=== PATIENT | female | born 1940 | race Caucasian/White ===

== ENCOUNTER → 2018-06-29 | Outpatient (CLI) | payer OTHER ==
[~2018-06-29] MED LIST: ? BP MED; ACET325 PO; ACET500 PO; ALBU3IS INH; ALBU90OI61 INH; ALUMAG30SU PO; AMIT25 PO; AMIT50 PO; AMOX500 PO; ASPI325 PO; ASPI325EC PO; ASPI81EC PO; Aranesp60 MCG/0.3 INJ; Aspirin EC81 MG PO; BIOTENE DRY MO237 ML MM; BISA10S PR; Bactrim Ds Tab1 EACH PO; CALCAVITD PO; CEPH500 PO; CLOP75 PO; CODACE30 PO; CODGUAEL PO; CRANBERRY PO; DARB200I SUBQ; DOCU100 PO; FAMO20 PO; FERR325 PO; FERRIC CITRATE210 MG PO; FLUO10 PO; FLUO20; FLUO20 PO; FLUSAL2505 IH; FOLI1 PO; FOLI400 PO; FURO20 PO; FURO40 PO; GAVISON; HYDACE5 PO; HYDACE5325 PO; ICAPS; IPRAOI INH; Keflex500 MG PO; LACT10SY PO; LOPE2C PO; LORA1 PO; METO25 PO; METO25ER PO; METO50 PO; MOM PO; MULVITMIND PO; MULVITMINF PO; Micro-K10 MEQ PO; NAPR220 PO; NAPR550 PO; OMEPRAZOLE MAGN20 MG PO; ONDA4ODT MM; ONDA8 PO; ONDA8ODT MM; OXYACE5T PO; OXYC10ER PO; OXYC5 PO; OXYM.05NI; PANT20 PO; PHENA100 PO; POLY17UD PO; POTCHL10ER PO; POTCHL20ER PO; PROMETH-CODEIN 65 ML PO; RISP.25 PO; RXHYD5325 PO; RXHYDACE PO; SENN187 PO; SIME40L PO; SIMV10 PO; SIMV40 PO; SULTRIDS PO; TOCO1000 PO; TRAM50 PO; TRIHYD253A PO; TRIHYD253B PO; TRIHYD5075 PO; VAGIFEM10 MCG VG; Vitamin C100 M1 PO; [UNRECOGNIZED DRUG - REMARK]
[2018-06-29 13:32] LABS: Source, Urine Clean Catch
[2018-06-29 14:08] LABS: Appearance, Urine Cloudy (Clear); Bilirubin, Urine Neg (Neg); Blood, Urine 5+ (Neg); Color, Urine Yellow (P-Yellow); Glucose Qualitative, Urine Neg (Neg); Ketones, Urine Neg (Neg); Leukocyte Esterase, Urine 3+ (Neg); Nitrite, Urine Neg (Neg); Protein, Urine 3+ (Neg); Specific Gravity, Urine 1.015 (1.003-1.022); Urobilinogen, Urine NORM (Normal)
[2018-06-29 14:26] LABS: Bacteria Many /hpf; Red Blood Cells, Urine TNTC /hpf (0-2); Squamous Epithelial Cells Few /hpf (Few); White Blood Cells, Urine TNTC /hpf (0-5)
== END ==
LOC: LAB RH 09:21 → EDSTATUS 11:34
PROVIDERS: Registered Nurse
DX: A04.72 Enterocolitis due to Clostridium difficile, not specified as recurrent (principal); N39.0 Urinary tract infection, site not specified
CPT/HCPCS: 81001; 87086; 87493

== ENCOUNTER → 2019-01-05 | Outpatient (CLI) | payer OTHER ==
[2019-01-05 08:01] LABS: Source, Urine Catheter
[2019-01-05 09:17] LABS: Bilirubin, Urine Neg (Neg); Blood, Urine 3+ (Neg); Glucose Qualitative, Urine Neg (Neg); Ketones, Urine Neg (Neg); Leukocyte Esterase, Urine 3+ (Neg); Nitrite, Urine Neg (Neg); Protein, Urine 2+ (Neg); Urobilinogen, Urine NORM (Normal)
[2019-01-05 09:37] LABS: Appearance, Urine Cloudy (Clear); Color, Urine Yellow (P-Yellow)
[2019-01-05 09:38] LABS: White Blood Cells, Urine TNTC /hpf (0-5)
[2019-01-05 09:39] LABS: Bacteria Many /hpf; Red Blood Cells, Urine 25-50 /hpf (0-2); Squamous Epithelial Cells Few /hpf (Few)
== END ==
LOC: LAB RH 07:59 → EDSTATUS 11:28
PROVIDERS: Registered Nurse
DX: R30.0 Dysuria (principal)
CPT/HCPCS: 81001; 87077; 87086; 87186

== ENCOUNTER → 2019-09-05 | Outpatient (CLI) | payer OTHER ==
[~2019-09-05] MED LIST changes: +ASCO500 PO; +AZO CRANBERRY1 EAC1 PO; +Ativan1 MG; +CALC.25; +CEFU250T47 PO; +FERSU300; +FOLI1; +Generlac10 GM/15 M; +MIRALAX17 GM; +POTA10T PO; +PRED20 PO; +Prednisone10 MG PO; +Prozac20 MG PO; +Seroquel Xr50 MG PO; +ZOCOR20 MG PO
[2019-09-05 12:44] LABS: Bilirubin, Urine Neg (Neg); Blood, Urine 4+ (Neg); Glucose Qualitative, Urine Neg (Neg); Ketones, Urine Neg (Neg); Leukocyte Esterase, Urine 3+ (Neg); Nitrite, Urine Neg (Neg); Protein, Urine 3+ (Neg); Urobilinogen, Urine NORM (Normal)
[2019-09-05 13:03] LABS: Appearance, Urine Hazy (Clear); Bacteria Few /hpf; Color, Urine Yellow (P-Yellow); Red Blood Cells, Urine TNTC /hpf (0-2); Squamous Epithelial Cells Rare /hpf (Few); White Blood Cells, Urine TNTC /hpf (0-5)
== END | disposition home or self-care (01) ==
LOC: EDSTATUS 11:52 → LAB RH 12:16
PROVIDERS: Internal Medicine Nephrology
DX: N39.0 Urinary tract infection, site not specified (principal)
CPT/HCPCS: 81001; 87086

== ENCOUNTER 2019-10-10 19:20 | Emergency (ER) | payer OTHER ==
[~2019-10-10] VITALS: Ht 165.1 cm; Wt 90.7 kg
[~2019-10-10 19:20] MED LIST changes: -ASCO500 PO; -AZO CRANBERRY1 EAC1 PO; -Ativan1 MG; -CALC.25; -CEFU250T47 PO; -FERSU300; -FOLI1; -Generlac10 GM/15 M; -MIRALAX17 GM; -POTA10T PO; -PRED20 PO; -Prednisone10 MG PO; -Prozac20 MG PO; -Seroquel Xr50 MG PO; -ZOCOR20 MG PO
[2019-10-10] MEDS ORDERED: CEPH500 PO (20:31)
== END 2019-10-10 21:08 | disposition home or self-care (01) ==
LOC: ER 19:20
DX: N39.0 Urinary tract infection, site not specified (principal); I10 Essential (primary) hypertension; I25.10 Atherosclerotic heart disease of native coronary artery without angina pectoris; J44.9 Chronic obstructive pulmonary disease, unspecified; D64.9 Anemia, unspecified; Z79.899 Other long term (current) drug therapy; Z79.82 Long term (current) use of aspirin; Z79.01 Long term (current) use of anticoagulants; Z79.51 Long term (current) use of inhaled steroids; Z87.891 Personal history of nicotine dependence
CPT/HCPCS: 99283; A9270-GY

== ENCOUNTER → 2019-10-11 | Outpatient (CLI) | payer OTHER ==
[2019-10-10 19:48] LABS: Source, Urine Catheter
[2019-10-10 19:52] LABS: Bilirubin, Urine Neg (Neg); Blood, Urine 4+ (Neg); Glucose Qualitative, Urine Neg (Neg); Ketones, Urine Neg (Neg); Leukocyte Esterase, Urine 3+ (Neg); Nitrite, Urine Neg (Neg); Protein, Urine 2+ (Neg); Urobilinogen, Urine NORM (Normal)
[2019-10-10 20:05] LABS: Appearance, Urine Cloudy (Clear); Color, Urine Pale Yellow (P-Yellow)
[2019-10-10 20:07] LABS: Bacteria Many /hpf; Squamous Epithelial Cells Few /hpf (Few); White Blood Cells, Urine TNTC /hpf (0-5)
[~2019-10-11] MED LIST changes: +ASCO500 PO; +AZO CRANBERRY1 EAC1 PO; +Ativan1 MG; +CALC.25; +CEFU250T47 PO; +FERSU300; +FOLI1; +Generlac10 GM/15 M; +MIRALAX17 GM; +NARCAN4 MG; +POTA10T PO; +PRED20 PO; +Prednisone10 MG PO; +Prozac20 MG PO; +Seroquel Xr50 MG PO; +ZOCOR20 MG PO
== END | disposition home or self-care (01) ==
LOC: EDSTATUS 10-10 13:24 → LAB RH 10-10 13:25
DX: N39.0 Urinary tract infection, site not specified (principal)
CPT/HCPCS: 81001; 87077; 87086; 87186

== ENCOUNTER 2019-10-15 16:32 | Emergency (ER) | payer OTHER ==
[~2019-10-15] VITALS: Ht 167.6 cm; Wt 68.0 kg
[~2019-10-15 16:32] MED LIST changes: -ASCO500 PO; -AZO CRANBERRY1 EAC1 PO; -Ativan1 MG; -CALC.25; -CEFU250T47 PO; -FERSU300; -FOLI1; -Generlac10 GM/15 M; -MIRALAX17 GM; -NARCAN4 MG; -POTA10T PO; -PRED20 PO; -Prednisone10 MG PO; -Prozac20 MG PO; -Seroquel Xr50 MG PO; -ZOCOR20 MG PO
[2019-10-15] MEDS ORDERED: AMIT25 PO (16:54)
[2019-10-15] MEDS ORDERED: CALC.25 (16:55)
[2019-10-15] MEDS ORDERED: ASCO500 PO (16:55)
[2019-10-15] MEDS ORDERED: CLOP75 PO (16:56)
[2019-10-15] MEDS ORDERED: Prozac20 MG PO (16:56)
[2019-10-15] MEDS ORDERED: AZO CRANBERRY1 EAC1 PO (16:56)
[2019-10-15] MEDS ORDERED: FERSU300 (16:56)
[2019-10-15] MEDS ORDERED: FOLI1 (16:57)
[2019-10-15] MEDS ORDERED: METO25 PO (16:57)
[2019-10-15] MEDS ORDERED: FURO40 PO (16:57)
[2019-10-15] MEDS ORDERED: POTA10T PO (16:57)
[2019-10-15] MEDS ORDERED: MIRALAX17 GM (16:57)
[2019-10-15] MEDS ORDERED: Prednisone10 MG PO (16:58)
[2019-10-15] MEDS ORDERED: ZOCOR20 MG PO (16:58)
[2019-10-15] MEDS ORDERED: PANT20 PO (16:58)
[2019-10-15] MEDS ORDERED: CEFU250T47 PO (16:59)
[2019-10-15] MEDS ORDERED: Seroquel Xr50 MG PO (16:59)
[2019-10-15] MEDS ORDERED: Ativan1 MG (16:59)
[2019-10-15] MEDS ORDERED: CEPH500 PO (16:59)
[2019-10-15] MEDS ORDERED: Generlac10 GM/15 M (17:00)
[2019-10-15] MEDS ORDERED: PRED20 PO (17:01)
== END 2019-10-15 17:22 | disposition home or self-care (01) ==
LOC: ER 16:32
DX: Z04.3 Encounter for examination and observation following other accident (principal); I10 Essential (primary) hypertension; J44.9 Chronic obstructive pulmonary disease, unspecified; I25.10 Atherosclerotic heart disease of native coronary artery without angina pectoris; D64.9 Anemia, unspecified; N19 Unspecified kidney failure; Z79.899 Other long term (current) drug therapy; W19.XXXA Unspecified fall, initial encounter
CPT/HCPCS: 99283

== ENCOUNTER → 2019-10-23 | Outpatient (CLI) | payer OTHER ==
[~2019-10-23] MED LIST changes: +ASCO500 PO; +AZO CRANBERRY1 EAC1 PO; +Ativan1 MG; +CALC.25; +CEFU250T47 PO; +FERSU300; +FOLI1; +Generlac10 GM/15 M; +MIRALAX17 GM; +POTA10T PO; +PRED20 PO; +Prednisone10 MG PO; +Prozac20 MG PO; +Seroquel Xr50 MG PO; +ZOCOR20 MG PO
[2019-10-23 14:23] LABS: Bilirubin, Urine Neg (Neg); Blood, Urine 3+ (Neg); Glucose Qualitative, Urine Neg (Neg); Ketones, Urine Neg (Neg); Leukocyte Esterase, Urine 3+ (Neg); Nitrite, Urine Neg (Neg); Protein, Urine 2+ (Neg); Urobilinogen, Urine NORM (Normal); pH, Urine 6.5 (5.0-8.0)
[2019-10-23 14:28] LABS: Appearance, Urine Cloudy (Clear); Color, Urine Yellow (P-Yellow)
[2019-10-23 14:29] LABS: Bacteria Many /hpf; Mucus Light (0-Heavy); Squamous Epithelial Cells Rare /hpf (Few); White Blood Cells, Urine TNTC /hpf (0-5)
== END | disposition home or self-care (01) ==
LOC: LAB SHORT 13:30 → LAB 13:30
PROVIDERS: Internal Medicine Nephrology
DX: N18.4 Chronic kidney disease, stage 4 (severe) (principal); D75.1 Secondary polycythemia; N25.81 Secondary hyperparathyroidism of renal origin; E55.9 Vitamin D deficiency, unspecified; E78.00 Pure hypercholesterolemia, unspecified; D52.8 Other folate deficiency anemias; D50.9 Iron deficiency anemia, unspecified; R76.9 Abnormal immunological finding in serum, unspecified; R94.5 Abnormal results of liver function studies; R94.6 Abnormal results of thyroid function studies
CPT/HCPCS: 81001; 87077; 87086; 87186

== ENCOUNTER → 2019-11-10 | Outpatient (CLI) | payer OTHER ==
[2019-11-10 20:33] LABS: Appearance, Urine Cloudy (Clear); Bilirubin, Urine Neg (Neg); Blood, Urine 3+ (Neg); Color, Urine Yellow (P-Yellow); Glucose Qualitative, Urine Neg (Neg); Ketones, Urine Neg (Neg); Leukocyte Esterase, Urine 3+ (Neg); Nitrite, Urine Pos (Neg); Protein, Urine 2+ (Neg); Urobilinogen, Urine NORM (Normal)
[2019-11-10 20:40] LABS: Bacteria Many /hpf; Squamous Epithelial Cells Few /hpf (Few); White Blood Cells, Urine TNTC /hpf (0-5)
== END | disposition home or self-care (01) ==
LOC: EDSTATUS 13:09 → LAB RH 20:24
DX: N39.0 Urinary tract infection, site not specified (principal)
CPT/HCPCS: 81001; 87077; 87086; 87186

== ENCOUNTER 2019-11-12 18:59 | Emergency (ER) | payer OTHER ==
[~2019-11-12] VITALS: Ht 157.5 cm; Wt 72.6 kg
[2019-11-12] MEDS ORDERED: FURO40 PO (19:27)
[2019-11-12] MEDS ORDERED: TRAM50 PO (19:33)
[2019-11-12 19:39] LABS: BASOPHILS ABSOLUTE AUTO 0.01 K/mm3 (0.00-0.23); BASOPHILS PERCENT AUTO 0 % (0-2); EOSINOPHILS ABSOLUTE AUTO 0.02 K/mm3 (0.00-0.68); EOSINOPHILS PERCENT AUTO 0 % (0-6); Hematocrit 37.4 % (33.0-51.0); Hemoglobin 11.5 g/dL (11.5-16.0); IMMATURE GRAN ABSOLUTE AUTO 0.05 K/mm3 (0.00-0.10); IMMATURE GRAN PERCENT AUTO 1 % (0-1); LYMPHOCYTES ABSOLUTE AUTO 1.28 K/mm3 (0.84-5.20); LYMPHOCYTES PERCENT AUTO 15 % (21-46); MONOCYTES ABSOLUTE AUTO 0.68 K/mm3 (0.16-1.47); MONOCYTES PERCENT AUTO 8 % (4-13); Mean Corpuscular HGB 29.9 pg (26.0-34.0); Mean Corpuscular HGB Conc 30.7 g/dL (31.5-36.5); Mean Corpuscular Volume 97 fL (80-100); Mean Platelet Volume 11.2 fL (9.1-12.4); NEUTROPHILS ABSOLUTE AUTO 6.73 K/mm3 (1.96-9.15); NEUTROPHILS PERCENT AUTO 77 % (41-73); Platelet Count 153 K/mm3 (150-400); RDW Standard Deviation 49.8 fL (35.1-46.3); Red Blood Cell Count 3.85 M/mm3 (3.80-5.20); White Blood Cell Count 8.77 K/mm3 (4.00-11.30)
[2019-11-12 20:02] LABS: Albumin/Globulin Ratio 0.9 (0.8-1.8); Bilirubin, Total 0.3 mg/dL (0.1-1.0); Bun/Creatinine Ratio 21.7 (12.0-20.0); Calcium, Blood 9.4 mg/dL (8.5-10.1); Creatinine, Blood 2.17 mg/dL (0.40-1.00); Globulin, Blood 3.3 g/dL (2.2-4.0); Potassium, Blood 4.4 mmol/L (3.5-5.5); Total Protein, Blood 6.3 g/dL (6.4-8.2)
[2019-11-12 20:56] LABS: Source, Urine Catheter
[2019-11-12 20:59] LABS: Appearance, Urine Hazy (Clear); Bilirubin, Urine Neg (Neg); Blood, Urine 2+ (Neg); Color, Urine Yellow (P-Yellow); Glucose Qualitative, Urine Neg (Neg); Ketones, Urine Neg (Neg); Leukocyte Esterase, Urine 3+ (Neg); Nitrite, Urine Pos (Neg); Protein, Urine 2+ (Neg); Urobilinogen, Urine NORM (Normal)
[2019-11-12 21:09] LABS: Bacteria Many /hpf; Red Blood Cells, Urine 0-2 /hpf (0-2); Squamous Epithelial Cells Mod /hpf (Few); White Blood Cells, Urine 50-100 /hpf (0-5)
[2019-11-12] MEDS ORDERED: CEPH500 PO (22:05)
== END 2019-11-12 22:40 | disposition home or self-care (01) ==
LOC: ER 18:59
PROVIDERS: Emergency Medicine
DX: R45.1 Restlessness and agitation (principal); N39.0 Urinary tract infection, site not specified; I25.10 Atherosclerotic heart disease of native coronary artery without angina pectoris; J44.9 Chronic obstructive pulmonary disease, unspecified; Z87.891 Personal history of nicotine dependence; Z79.899 Other long term (current) drug therapy
CPT/HCPCS: 36415; 80053; 81001; 85025; 87077; 87086; 87186; 96374; 96375; 99284-25; J0696; J2060; J7030

== ENCOUNTER 2019-12-13 21:44 | Emergency (ER) | payer OTHER ==
[~2019-12-13] VITALS: Ht 157.5 cm; Wt 90.7 kg
[2019-12-13] MEDS ORDERED: NARCAN4 MG (22:57)
== END 2019-12-13 23:09 | disposition home or self-care (01) ==
LOC: ER 21:44
DX: T40.2X1A Poisoning by other opioids, accidental (unintentional), initial encounter (principal); R41.82 Altered mental status, unspecified; I25.10 Atherosclerotic heart disease of native coronary artery without angina pectoris; F03.90 Unspecified dementia, unspecified severity, without behavioral disturbance, psychotic disturbance, mood disturbance, and anxiety; J44.9 Chronic obstructive pulmonary disease, unspecified; Z87.891 Personal history of nicotine dependence; Z85.3 Personal history of malignant neoplasm of breast; Z79.899 Other long term (current) drug therapy
CPT/HCPCS: 99284

== ENCOUNTER → 2019-12-22 | Outpatient (CLI) | payer OTHER ==
[~2019-12-22] MED LIST changes: -AZO CRANBERRY1 EAC1 PO; +CRANBERRY450 M1 PO; +Calcium 600-D1 EACH PO; +Daily Multiple1 EACH PO; +FERSU300 PO; -FOLI1; +GABA100 PO; -Generlac10 GM/15 M; +Generlac10 GM/15 M PO; -MIRALAX17 GM; +MIRALAX17 GM PO; +NARCAN4 MG
== END | disposition home or self-care (01) ==
LOC: LAB RH 07:46 → EDSTATUS 09:27
DX: E83.52 Hypercalcemia (principal)
CPT/HCPCS: 36415; 82310

== ENCOUNTER → 2019-12-29 | Outpatient (CLI) | payer OTHER | END | disposition home or self-care (01) | LOC: LAB RH 07:33 → EDSTATUS 09:32 | DX: E83.51 Hypocalcemia (principal) | CPT/HCPCS: 36415; 82306; 82310; 83970 ==

== ENCOUNTER → 2019-12-30 | Outpatient (CLI) | payer OTHER ==
[2019-12-30 12:24] LABS: Source, Urine Clean Catch
[2019-12-30 12:56] LABS: Bilirubin, Urine Neg (Neg); Blood, Urine 3+ (Neg); Glucose Qualitative, Urine Neg (Neg); Ketones, Urine Neg (Neg); Leukocyte Esterase, Urine 3+ (Neg); Nitrite, Urine Neg (Neg); Protein, Urine 2+ (Neg); Specific Gravity, Urine 1.015 (1.003-1.022); Urobilinogen, Urine NORM (Normal)
[2019-12-30 13:35] LABS: Appearance, Urine Turbid (Clear); Color, Urine Yellow (P-Yellow)
[2019-12-30 13:36] LABS: Bacteria Many /hpf; Squamous Epithelial Cells Rare /hpf (Few); White Blood Cells, Urine TNTC /hpf (0-5)
== END | disposition home or self-care (01) ==
LOC: EDSTATUS 11:20 → LAB RH 12:19
PROVIDERS: Family Medicine
DX: N39.0 Urinary tract infection, site not specified (principal)
CPT/HCPCS: 81001; 87077; 87086; 87186

== ENCOUNTER 2020-01-02 14:07 | Inpatient (IN) | payer OTHER ==
[~2020-01-02] VITALS: Ht 172.7 cm; Wt 67.1 kg
[~2020-01-02 14:07] MED LIST changes: -Calcium 600-D1 EACH PO; -Daily Multiple1 EACH PO; -FERSU300 PO; -GABA100 PO
[2020-01-02 14:53] LABS: BASOPHILS ABSOLUTE AUTO 0.06 K/mm3 (0.00-0.23); BASOPHILS PERCENT AUTO 0 % (0-2); EOSINOPHILS ABSOLUTE AUTO 0.02 K/mm3 (0.00-0.68); EOSINOPHILS PERCENT AUTO 0 % (0-6); Hematocrit 44.7 % (33.0-51.0); Hemoglobin 13.3 g/dL (11.5-16.0); IMMATURE GRAN ABSOLUTE AUTO 0.37 K/mm3 (0.00-0.10); IMMATURE GRAN PERCENT AUTO 2 % (0-1); LYMPHOCYTES ABSOLUTE AUTO 0.76 K/mm3 (0.84-5.20); LYMPHOCYTES PERCENT AUTO 3 % (21-46); MONOCYTES ABSOLUTE AUTO 1.52 K/mm3 (0.16-1.47); MONOCYTES PERCENT AUTO 6 % (4-13); Mean Corpuscular HGB 29.5 pg (26.0-34.0); Mean Corpuscular HGB Conc 29.8 g/dL (31.5-36.5); Mean Platelet Volume 11.9 fL (9.1-12.4); NEUTROPHILS ABSOLUTE AUTO 21.21 K/mm3 (1.96-9.15); NEUTROPHILS PERCENT AUTO 89 % (41-73); NRBC ABSOLUTE 0.02 K/mm3 (0.00-0.02); NRBC Auto 0.1 /100 WBC (0.0-0.2); Platelet Count 182 K/mm3 (150-400); RDW Coefficient Variation 16.3 % (11.7-14.2); RDW Standard Deviation 60.3 fL (35.1-46.3); Red Blood Cell Count 4.51 M/mm3 (3.80-5.20); White Blood Cell Count 23.94 K/mm3 (4.00-11.30)
[2020-01-02 15:09] LABS: Mean Corpuscular Volume 99 fL (80-100)
[2020-01-02 15:14] LABS: Albumin, Blood 1.8 g/dL (3.4-5.0); Albumin/Globulin Ratio 0.4 (0.8-1.8); Bilirubin, Total 0.4 mg/dL (0.1-1.0); Bun/Creatinine Ratio 29.6 (12.0-20.0); Calcium, Blood 8.7 mg/dL (8.5-10.1); Creatinine, Blood 2.53 mg/dL (0.40-1.00); Globulin, Blood 4.6 g/dL (2.2-4.0); Potassium, Blood 5.6 mmol/L (3.5-5.5); Total Protein, Blood 6.4 g/dL (6.4-8.2); Troponin I 0.05 ng/mL (0.000-0.040)
[2020-01-02] MEDS ORDERED: Calcium 600-D1 EACH PO (15:20)
[2020-01-02] MEDS ORDERED: DOCU100 PO (15:20)
[2020-01-02] MEDS ORDERED: Prednisone10 MG PO (15:21)
[2020-01-02] MEDS ORDERED: Daily Multiple1 EACH PO (15:22)
[2020-01-02] MEDS ORDERED: GABA100 PO (15:23)
[2020-01-02] MEDS ORDERED: ACET500 PO (15:26)
[2020-01-02] MEDS ORDERED: OXYC5 PO (15:26)
[2020-01-02 17:29] LABS: International Normalized Ratio 1.1; Prothrombin Time Results 11.7 Sec (9.7-11.5)
[2020-01-02 17:57] LABS: Source, Urine Catheter
[2020-01-02 18:00] LABS: Bilirubin, Urine Neg (Neg); Blood, Urine 3+ (Neg); Glucose Qualitative, Urine Neg (Neg); Ketones, Urine Neg (Neg); Leukocyte Esterase, Urine 3+ (Neg); Nitrite, Urine Neg (Neg); Protein, Urine 2+ (Neg); Urobilinogen, Urine NORM (Normal); pH, Urine 6.5 (5.0-8.0)
[2020-01-02 18:22] LABS: Appearance, Urine Clear (Clear); Color, Urine Yellow (P-Yellow)
[2020-01-02 18:23] LABS: Bacteria Many /hpf; White Blood Cells, Urine 50-100 /hpf (0-5)
[2020-01-02 18:24] LABS: Squamous Epithelial Cells Few /hpf (Few)
--- NOTE | 2020-01-02 18:38 | NUR ---
ASSUMED CARE: PT TRANSFERRED FROM ED. NOTED TO BE CONFUSED. LIPS PURPLE, FINGERS PURPLE, SPEECH GARBLED. 2LNC SATTING MID 90S. CONTINUES TO HOLLER OUT AND ASK FOR WATER. VITALS COMPLETED BUT DIFFICULT DUE TO PT BEING UNABLE TO FOLLOW DIRECTIONS. FLUID BOLUS RUNNING OF 1/2 NS.
[2020-01-02 19:24] LABS: Adenovirus Not Detected (NOT DETECT); Bordetella pertussis Not Detected (NOT DETECT); Chlamydophila pneumoniae Not Detected (NOT DETECT); Coronavirus 229E Not Detected (NOT DETECT); Coronavirus HKU1 Not Detected (NOT DETECT); Coronavirus NL63 Not Detected (NOT DETECT); Coronavirus OC43 Not Detected (NOT DETECT); Human Metapneumovirus Not Detected (NOT DETECT); Human Rhinovirus/Enterovirus Not Detected (NOT DETECT); Influenza A/2009-H1 Not Detected (NOT DETECT); Influenza A/H1 Not Detected (NOT DETECT); Influenza A/H3 Not Detected (NOT DETECT); Influenza B Not Detected (NOT DETECT); Mycoplasma pneumoniae Not Detected (NOT DETECT); Parainfluenza Virus 1 Not Detected (NOT DETECT); Parainfluenza Virus 2 Not Detected (NOT DETECT); Parainfluenza Virus 3 Not Detected (NOT DETECT); Parainfluenza Virus 4 Not Detected (NOT DETECT); Respiratory Syncytial Virus Not Detected (NOT DETECT)
--- NOTE | 2020-01-02 23:45 | NUR ---
UPDATE PATIENT HAS BEEN VERY AGGITATED AND YELLING OUT, "HELP ME" NONE STOP THROUGHOUT THE SHIFT SO FAR. PATIENT UNABLE TO BE REASURED OR COMFORTED. PATIENT NOT REDIRECTABLE OR ABLE TO BE REORIENTED. NURSE PRACTIONER KEELYTING IN TO SEE PATIENT. ORDERS RECEIVED. GASKET MAKER MELINDA AWARE OF CT RESULTS WELL.
[2020-01-03] MEDS ORDERED: FERSU300 PO (02:53)
[2020-01-03] MEDS ORDERED: FURO40 PO ×2 (02:59→03:00)
[2020-01-03] MEDS ORDERED: CEPH500 PO (03:30)
--- NOTE | 2020-01-03 03:30 | NUR ---
UPDATE PATIENT CONTINUES TO BE VERY AGGITATED AND NOT REDIRECTABLE. PATIENT PULLING AT IV LINES AND FREQUENTLY REMOVES O2 TUBING, REPLACED EACH TIME. PATIENT CONTINUES TO BE NON STOP YELLING OUT, "HELP ME" OR "I WANT TO GO HOME" OR "I WANT TO GO TO BED," EVEN THOUGH PATIENT ORIENTED TO ROOM AND CALL LIGHT FEQUENTLY. DR JENSEN NOTIFIFED. ORDERS RECEIVED.
[2020-01-03 04:35] LABS: BASOPHILS ABSOLUTE AUTO 0.04 K/mm3 (0.00-0.23); BASOPHILS PERCENT AUTO 0 % (0-2); Hematocrit 34.8 % (33.0-51.0); Hemoglobin 10.2 g/dL (11.5-16.0); LYMPHOCYTES ABSOLUTE AUTO 1.19 K/mm3 (0.84-5.20); LYMPHOCYTES PERCENT AUTO 5 % (21-46); MONOCYTES ABSOLUTE AUTO 1.05 K/mm3 (0.16-1.47); MONOCYTES PERCENT AUTO 5 % (4-13); Mean Corpuscular HGB 29.7 pg (26.0-34.0); Mean Corpuscular HGB Conc 29.3 g/dL (31.5-36.5); Mean Corpuscular Volume 101 fL (80-100); NRBC ABSOLUTE 0.02 K/mm3 (0.00-0.02); NRBC Auto 0.1 /100 WBC (0.0-0.2); Platelet Count 150 K/mm3 (150-400); RDW Coefficient Variation 16.5 % (11.7-14.2); RDW Standard Deviation 61.3 fL (35.1-46.3); Red Blood Cell Count 3.44 M/mm3 (3.80-5.20); White Blood Cell Count 23.41 K/mm3 (4.00-11.30)
[2020-01-03 04:59] LABS: Albumin, Blood 1.5 g/dL (3.4-5.0); Albumin/Globulin Ratio 0.3 (0.8-1.8); Bilirubin, Total 0.5 mg/dL (0.1-1.0); Bun/Creatinine Ratio 29.1 (12.0-20.0); Calcium, Blood 7.5 mg/dL (8.5-10.1); Creatinine, Blood 2.34 mg/dL (0.40-1.00); EOSINOPHILS ABSOLUTE AUTO 0.01 K/mm3 (0.00-0.68); EOSINOPHILS PERCENT AUTO 0 % (0-6); Globulin, Blood 4.4 g/dL (2.2-4.0); IMMATURE GRAN ABSOLUTE AUTO 0.31 K/mm3 (0.00-0.10); IMMATURE GRAN PERCENT AUTO 1 % (0-1); NEUTROPHILS ABSOLUTE AUTO 20.81 K/mm3 (1.96-9.15); NEUTROPHILS PERCENT AUTO 89 % (41-73); Potassium, Blood 5.6 mmol/L (3.5-5.5); Total Protein, Blood 5.9 g/dL (6.4-8.2)
--- NOTE | 2020-01-03 07:55 | NUR ---
SHIFT SUMMARY PATIENT CONTINUES TO BE AWAKE, ADGGTATED, AND YELLING OUT FREQUENTLY THROUGHOUT THE REST OF THE NIGHT. PATIENT PROVIDED WITH SNACKS AND DRINKS REQUESTED AND PRN. DR JENSEN AWARE. BED ALARM ON FOR SAFETY. BEDSIDE REPORT GIVEN TO TIM DURHAM.
[2020-01-03 10:54] LABS: Potassium, Blood 5.4 mmol/L (3.5-5.5)
--- NOTE | 2020-01-03 11:04 | NUR ---
MD MCGOVERN CALLED PER NOTIFY ORDER MD MCGOVERN NOTIFIED OF K+ AND CO2 - NO NEW ORDERS.
--- NOTE | 2020-01-03 11:06 | NUR ---
TRANSFER SUMMARY TO MEDICAL FLOOR. PATIENT MED WITH TELE. PATIENT REMAINS AFIB 110-130'S PER PAPER CUTTING MACHINE OPERATOR. PATIENT REMAINS AGITATED AND CONFUSED (DEMENTIA AND MENTAL HANDICAP AT BASELINE). PATIENT IN BILATERAL SOFT WRIST RESTAINTS - CIRCULATION CHECKED AND PATIENT CHANGED AND REPOSITIONED Q2HR. PATIENT INCONTINENT OF STOOL AND URINE - NOTED X2 THIS SHIFT THUS FAR. PATIENT DENIES ANY PAIN. SKIN TEARS AND COCCYX WOUNDS NOTED. PATIENT ON 4.5 LPM NC WITH CONTINUOUS BIOX IN PLACE AT 93%. DNR BAND ON. PATIENT LEFT UNIT VIA UNIT BED WITH PCT. REPORT GIVEN TO [facility] MEDICAL FLOOR RN.
--- NOTE | 2020-01-03 17:15 | NUR ---
SHIFT SUMMARY PT ARRIVED TO THE FLOOR EARLY THIS AFTERNOON. PT SEDATED UPON ARRIVAL FROM PCU. PT IN SOFT WRIST RESTRAINTS DUE TO PULLING MULTIPLE IVS DUE TO CONFUSION. PT TURNED MULTIPLE TIMES DURING THIS SHIFT. PT WAKES WHEN TURNED OR ATTENDS CHANGE AND CALLS OUT HELP ME. PT NOT RESPONSIVE TO VERBAL INTERACTION, DOES NOT MAKE EYE CONTACT. PT MILDLY PULLS ON RESTRAINTS WHEN BEING TURNED. ONCE SETTLED PT STOPS PULLING ON RESTRAINTS. PT ASSESSED FOR COMFORT AND CIRCULATION REGULARLY. PT CURRENTLY SLEEPING IN BED.
[2020-01-04 05:51] LABS: BASOPHILS ABSOLUTE AUTO 0.05 K/mm3 (0.00-0.23); BASOPHILS PERCENT AUTO 0 % (0-2); EOSINOPHILS PERCENT AUTO 0 % (0-6); Hematocrit 33.6 % (33.0-51.0); IMMATURE GRAN ABSOLUTE AUTO 0.93 K/mm3 (0.00-0.10); IMMATURE GRAN PERCENT AUTO 4 % (0-1); LYMPHOCYTES ABSOLUTE AUTO 0.87 K/mm3 (0.84-5.20); LYMPHOCYTES PERCENT AUTO 4 % (21-46); MONOCYTES ABSOLUTE AUTO 0.79 K/mm3 (0.16-1.47); MONOCYTES PERCENT AUTO 4 % (4-13); Mean Corpuscular HGB 29.6 pg (26.0-34.0); Mean Corpuscular HGB Conc 29.8 g/dL (31.5-36.5); Mean Corpuscular Volume 99 fL (80-100); Mean Platelet Volume 12.3 fL (9.1-12.4); NEUTROPHILS PERCENT AUTO 88 % (41-73); NRBC ABSOLUTE 0.05 K/mm3 (0.00-0.02); NRBC Auto 0.2 /100 WBC (0.0-0.2); Platelet Count 141 K/mm3 (150-400); RDW Coefficient Variation 16.4 % (11.7-14.2); RDW Standard Deviation 60.1 fL (35.1-46.3); Red Blood Cell Count 3.38 M/mm3 (3.80-5.20); White Blood Cell Count 22.34 K/mm3 (4.00-11.30)
[2020-01-04 06:08] LABS: Albumin, Blood 1.6 g/dL (3.4-5.0); Anion Gap 6 mmol/L (6-16); Blood Urea Nitrogen 69 mg/dL (8-24); Bun/Creatinine Ratio 30.9 (12.0-20.0); CO2, Blood 23 mmol/L (21-32); Calcium, Blood 7.8 mg/dL (8.5-10.1); Chloride, Blood 120 mmol/L (98-108); Creatinine, Blood 2.23 mg/dL (0.40-1.00); Glomerular Filtration Rate 23 (60-); Glucose, Blood 172 mg/dL (70-99); Magnesium, Blood 2.3 mg/dL (1.6-2.4); Phosphorus, Blood 2.9 mg/dL (2.5-4.9); Potassium, Blood 4.8 mmol/L (3.5-5.5); Sodium, Blood 149 mmol/L (136-145)
--- NOTE | 2020-01-04 07:01 | NUR ---
01/04/20 0600 PT HAS A POWER GLIDE THAT IS VERY POSITIONAL AND WOULD NOT RUN IV FLUIDS CONTINUALLY. RN DID INFORM CONVEYOR LINE BAKERY WORKER,LISA AND BULLDOZER PRESS OPERATOR MD AT BEGINNING OF SHIFT. PT GETTING AGGITATED AGAIN. SEE MAR FOR MEDS GIVEN. PT TURNED Q 2 HOURS. VITALS STABLE.
--- NOTE | 2020-01-04 14:09 | NUR ---
Pastoral visit conducted and pt. is fine
--- NOTE | 2020-01-04 17:51 | NUR ---
SHIFT SUMMARY PT ALERT TO SELF ONLY THIS SHIFT. PT CONTINUES TO CRY OUT "HELP ME" CONTINUOUSLY THROUGHOUT THIS SHIFT. PT ABLE TO STATE BRIEF NEEDS THEN IMMEDIATLEY REVERTS TO CRYING OUT HELP ME. PT CONTINUES TO BE IN RESTRAINTS. PT PULLS ON LINENS AND CLOTHING WITHIN REACH. PT CURRENTLY SITTING UP IN BED EATING DINNER WITH ASSISTANCE.
--- NOTE | 2020-01-04 19:15 | NUR ---
Initial spiritual care note: Mrs. Hu was alone in room and calling out. She continued to call out for help while I sat beside her. Her speech is garbled and she is difficult to understand. She appears profoundly confused--asking for water and then denying it. Asking for chocolate milk, and then denying she wants it. Attempted to calm through touch, soothing words, and meeting her requests. I was unable to calm her at all. I will remain available to pt and family.
--- NOTE | 2020-01-04 22:47 | NUR ---
PATIENT AT 2239. SHE HAD BEEN CRYING OUT HELP ME AND DISTRAUGHT ALL SHIFT UNTIL APPROX 15 MINUTES BEFORE . MULCHER OPERATOR CALLED THIS RN AT 2220 TO INFORM THAT PATIENT RHYTHM HAD CHANGED FROM SINUS TACH TO A 6 SEC RUN OF PSVT IN THE 180'S THEN BACK TO SINUS TACH. AT APPROX 2234, THE TECH CALLED TO INFORM THAT PATIENT HAD DROPPED INTO THE 30'S. UPON ARRIVAL IN THE ROOM IN APPROX 1 MINUTE, PATIENT WAS AGONAL BREATHING IN ASYSTOLE. WAS PRONOUNCED AT 2239. CALL PLACED TO DAUGHTER TO INFORM
== END 2020-01-04 22:40 | DRG 871 ==
LOC: ER 14:07 → MEDS 16:33 → PCU 16:33 → MEDS 01-03 11:13
PROVIDERS: Emergency Medicine; Internal Medicine Nephrology; ADMIT Family Medicine
DX: A41.9 Sepsis, unspecified organism (principal); G92 Toxic encephalopathy; J18.9 Pneumonia, unspecified organism; J96.21 Acute and chronic respiratory failure with hypoxia; N17.0 Acute kidney failure with tubular necrosis; N18.6 End stage renal disease; E87.0 Hyperosmolality and hypernatremia; E87.1 Hypo-osmolality and hyponatremia; I12.0 Hypertensive chronic kidney disease with stage 5 chronic kidney disease or end stage renal disease; N25.81 Secondary hyperparathyroidism of renal origin; N39.0 Urinary tract infection, site not specified; Z16.11 Resistance to penicillins; Z16.24 Resistance to multiple antibiotics; J44.0 Chronic obstructive pulmonary disease with (acute) lower respiratory infection; R65.20 Severe sepsis without septic shock; Z99.2 Dependence on renal dialysis; E78.5 Hyperlipidemia, unspecified; E86.0 Dehydration; E86.1 Hypovolemia; E87.5 Hyperkalemia; E87.70 Fluid overload, unspecified; E88.09 Other disorders of plasma-protein metabolism, not elsewhere classified; F03.90 Unspecified dementia, unspecified severity, without behavioral disturbance, psychotic disturbance, mood disturbance, and anxiety; F79 Unspecified intellectual disabilities; I25.10 Atherosclerotic heart disease of native coronary artery without angina pectoris; I25.2 Old myocardial infarction; Z85.3 Personal history of malignant neoplasm of breast; Z87.891 Personal history of nicotine dependence
CPT/HCPCS: 0099U; 36415; 51701; 71045; 71250; 76770; 80053; 80069; 81001; 82374; 82947; 83605; 83735; 83880; 84132; 84145; 84484; 85025; 85610; 85730; 87040; 93005; 93010; 94640; 94760; 96361-59; 96365-59; 96367-59; 96375-59; 99285-25; A9270; A9270-GY; C1751; C9113; J0456; J0696; J1630; J1650; J2060; J2930; J3370; J7030; J7050; J7070

== ENCOUNTER → 2020-01-02 | Outpatient (CLI) | payer OTHER ==
[2020-01-02 12:38] LABS: Hematocrit 39.8 % (33.0-51.0); Hemoglobin 11.7 g/dL (11.5-16.0); Mean Corpuscular HGB 29.8 pg (26.0-34.0); Mean Corpuscular HGB Conc 29.4 g/dL (31.5-36.5); Mean Platelet Volume 11.7 fL (9.1-12.4); Platelet Count 239 K/mm3 (150-400); RDW Coefficient Variation 16.4 % (11.7-14.2); RDW Standard Deviation 61.6 fL (35.1-46.3); Red Blood Cell Count 3.92 M/mm3 (3.80-5.20); White Blood Cell Count 31.52 K/mm3 (4.00-11.30)
[2020-01-02 12:43] LABS: Mean Corpuscular Volume 102 fL (80-100)
[2020-01-02 12:56] LABS: Bun/Creatinine Ratio 30.1 (12.0-20.0); Calcium, Blood 8.8 mg/dL (8.5-10.1); Creatinine, Blood 2.46 mg/dL (0.40-1.00); Potassium, Blood 5.9 mmol/L (3.5-5.5)
== END | disposition home or self-care (01) ==
LOC: EDSTATUS 11:22 → LAB RH 12:27
PROVIDERS: Family Medicine
DX: J44.9 Chronic obstructive pulmonary disease, unspecified (principal); I10 Essential (primary) hypertension
CPT/HCPCS: 80048; 83880; 85027